=== PATIENT | male | born 2000 | race Caucasian/White ===

== ENCOUNTER 2025-02-13 07:31 | Emergency (ER) | payer OTHER, SELFPAY ==
[2025-02-13 07:53] VITALS: BP 133/79; PULSE 73; TEMP 36.7; O2SAT 96; BMI 25.8
[2025-02-13] MEDS: LIDOCAINE HCL 1% 100 MG/10 ML MDV INJ (08:00)
--- OUTSIDE RECORDS SUMMARY | 2025-02-13 08:01 | XMS_ITS | Clinical Summary ---
Author Organization [facility] Address [facility] [place] [address] Care Team Providers Care Commercial Real Estate Paralegal Name Role Phone Aaron Carballo MD Primary Care Provider [phone] Allergies No known active allergies Medications MedicationSigDispense QuantityRefillsLast FilledStart DateEnd DateStatus ibuprofen (MOTRIN) 400 mg tablet Take 400 mg by mouth every 6 hours as needed for Pain or Fever.Active acetaminophen (TYLENOL) 500 mg tablet Take 500 mg by mouth.Active Active Problems ProblemNoted DateDiagnosed DateClosed nondisplaced fracture of proximal phalanx of left ring whcjmm9109/12/2016 Family History Medical HistoryRelationNameCommentsDiabetesPaternal GrandmotherRelationName StatusCommentsPaternal Grandmother Social History Tobacco UseTypesPacks/DayYears UsedDateSmoking Tobacco: NeverSex and Gender InformationValueDate RecordedSex Assigned at BirthNot on fileLegal SexMale 05/04/2012 14:10 ESTGender IdentityNot on fileSexual OrientationNot on file Plan of Treatment Health MaintenanceDue DateLast DoneCommentsANNUAL KYZXBQOW20/13/2003MMR VACCINES (1 of 1 - Standard series)10/05/2003DTAP/TDAP/TD (1 - Tdap)2009VARICELLA VACCINES (1 of 2 - 13+ 2-dose series)10/05/2015HPV VACCINES (1 - Male 3-dose series)2017MENINGOCOCCAL B VACCINE (1 of 2 - Standard)2018HEPATITIS B VACCINES (1 of 3 - 19+ 3-dose series)2COVID-19 VACCINES ( - 2024-25 season)2024Zoster Vaccines (1 of 2)2052HEPATITIS A VACCINESAged Out No longer eligible based on patient's age to complete this topicHIB VACCINESAged OutNo longer eligible based on patient's age to complete this topicMENINGOCOCCAL VACCINEAged OutNo longer eligible based on patient's age to complete this topic PNEUMOCOCCAL VACCINEAged OutNo longer eligible based on patient's age to complete this topicPOLIO VACCINESAged OutNo longer eligible based on patient's age to complete this topicRSV VACCINES (UNDER 20 MO)Aged OutNo longer eligible based on patient's age to complete this topic Insurance Care Teams Team MemberRelationshipSpecialtyStart DateEnd Date Aaron Carballo MD [address] [place] [address] PCP - OftvbzpEjnwnzgknp06/12/17
--- OUTSIDE RECORDS SUMMARY | 2025-02-13 08:01 | XMS_ITS | Data Portability ---
Author Organization WILLIAM Reynaldo [facility], [facility] Address [address] [place] [address] Assessment No assessment recorded. Plan of Treatment Reminders Order DateSubmit DateProviderLast Modified ByJoie DetailsJames Modified TimeDetailsAppointmentsNone recorded.LabNone recorded.ReferralNone recorded. ProceduresNone recorded.SurgeriesNone recorded.ImagingNone recorded.Medication OrdersCapmist DM 60 mg-15 mg-400 mg ecsfbh94[facility] [address], [address] [place] [address], [id number], 04/25/2024 10:41:27amoxicillin 875 mg-potassium clavulanate 125 mg tablet [facility] [address], [address] [place] [address], [id number], 04/25/2024 10:41:26amoxicillin 500 mg xzbsagt68ngarland8[facility] [address], [address] [place] [address], [address], 01 10:25:52mupirocin 2 % topical dqnpdfww00[facility] [address], [address] [place] [address], [address], 01/26/2021 13:48:33cephalexin 500 mg bmvres33[facility], [address] [facility], [place], [address], 01/26/2021 13:48:28amoxicillin 500 mg xfcjlg08aingle6[facility], [address] [facility], [place], [address], 07 17:10:05 Patient TargetsNo targets recorded. Patient Instructions Encounter Date Encounter Id Patient Instructions Last Modified By Organization Details Last Modified Time 04/04/2019 [id number] tylenol prn, gargle warm salt water, recheck pmd prn or ed if symptoms worsen fhaussman Not available 04/04/2019 12:17:17 11/07/2020 [id number] Take medications as prescribed. Soak the foot in warm water with Epsom salt 3-4 times daily. Keep the foot dry during the rest of the day. Wear comfortable shoes with adequate room for the toes. Consider wearing sandals until the condition clears up. You may take ibuprofen or acetaminophen for pain relief. If there is no improvement in 2 to 3 days or if the condition worsens patient may return to clinic or call your doctor.ozvjpp243Dbo cyvdxtjjh03/17/2021 10:49:17DDX and treatment plan was discussed w/ Pt. Most consistent w/ Ingrown nail. Pt was educated on conservative measures including Epsom salt BID and was given option to choose b/w that and pharmacologic Tx. Ample time was provided to Pt to discuss HPI, review PMHx, Tx options. Pt verbalized understanding of the A/P.abrbwd583Irl ybnydpfik41/17/2021 10:41:49100022506585Oxzkn and complete entire antibiotic Tylenol or ibuprofen as needed for pain or fever Push fluids and stay well hydrated OTC treatment for URI symptoms as discussed Consider humidifier in room Followup with PCP in 2-4 days if symptoms fail to improve or worsen; sooner if needed Go to ER for fever over 102, shortness of breath/ difficultly breathing, severe abdominal pain, worsening cqloeuoqkrrksx208Nma rukdrcdai49/05/2021 13:52:31DDX and treatment plan was discussed w/ Pt. Most consistent w/ Otitis Media due to L EAC erythematous and TM Hyperemic and Bulging. Pt was educated on conservative measures and was given option to choose b/w that and pharmacologic Tx. Ample time was provided to Pt to discuss HPI, review PMHx, Tx options. Pt verbalized understanding of the A/P.ggveyg165Ceo uomhldjli43/05/2021 13:53:[id number] Sinusitis: Care Instructions qxknglqx816Ivt qsppnlupc27/02/2025 10:41:19Sinus Infection: -Humidified air can improve mucus clearance -Increase fluid intake -Blow rather than ???sniff?? nose -If no improvement in 3-7 days FU with PCP -Saline nasal wash - Acetaminophen (Tylenol) or ibuprofen (Advil, Motrin) for fever, pain ytwwkngd664Vrr gkiapfyed07/02/2025 10:41:30Call your doctor now or seek immediate medical care if: -You have new or worse swelling, redness, or pain in your face or around one or both of your eyes. -You have double vision or a change in your vision. -You have a high fever. -You have a severe headache and a stiff neck. -You have mental changes, such as feeling confused or much less alert. -You are not getting better as expected.hedevcfj037Viv available 04/25/2024 10:41:54 Reason for Referral None Reported. Problems No Known Problems Medical Equipment None Reported. Allergies No known drug allergies Medications Name Sig Start Date Stop Date Status Note LastModified by Organization Details LastModified Time amoxicillin 500 mg capsule Take 1 capsul e every 12 hours by oral route for 7 days. 01/26/2021 04/25/2024 completed Not AvailableNot AvailableNot AvailableZithromax Z-Moe 250 mg tablet1 dose moe completedNot AvailableNot AvailableNot AvailableTamiflu 75 mg capsuleTake 1 capsule twice a day by oral route.completed Not AvailableNot AvailableNot Availableamoxicillin 500 mg tabletTake 1 tablet every 8 hours by oral route for 10 days.completedNot AvailableNot AvailableNot Availablecephalexin 500 mg tabletTake 1 tablet every 8 hours by oral route for 10 days./1completedNot AvailableNot AvailableNot Availablemupirocin 2 % topical ointmentAPPLY A SMALL AMOUNT TO THE AFFECTED AREA BY TOPICAL ROUTE 3 TIMES PER DAY/1completedNot AvailableNot AvailableNot Availableamoxicillin 875 mg-potassium clavulanate 125 mg tabletTake 1 tablet every 12 hours by oral route as directed for 7 days. 5activeNot AvailableNot AvailableNot QagkboavfEdsdgyrx24/18/2018 completedNot AvailableNot AvailableNot AvailableCapmist DM 60 mg-15 mg-400 mg tabletTake 1 tablet every 6 hours by oral route as needed for 7 days.04/25/2024 activeNot AvailableNot AvailableNot Available Vitals Date Recorded Body weight Body mass index (BMI) Body height Pain severity - 0-10 verbal numeric rating [Score] - Reported Body temperature Oxygen saturation Oxygen saturation in Arterial blood by Pulse oximetry Heart rate Systolic And Diastolic Provider Name and Address Organization Details Last Updated DateTime 5 63102.1 g 25.2 kg/m2 177.8 cm 2 97.9 [degF] 97 % 97 % 78 /min 118/68 mm[Hg] Marylou Rosa [facility] 5 10:28:27 Date Recorded Body height Body mass index (BMI) Body mass index (BMI) [Percentile] Per age and sex Body weight Oxygen saturation Oxygen saturation in Arterial blood by Pulse oximetry Heart rate Body temperature Systolic And Diastolic Provider Name and Address Organization Details Last Updated DateTime 1 177.8 cm 21 kg/m2 37 % 68021.9 2 g 96 % 96 % 60 /min 97.1 [degF] 122/80 mm[Hg] Kelley Hernandez [facility] 1 10:32:24 Date Recorded Body height Heart rate Respiratory rate Body temperature Body mass index (BMI) Body mass index (BMI) [Percentile] Per age and sex Body weight Oxygen saturation Oxygen saturation in Arterial blood by Pulse oximetry Systolic And Diastolic Provider Name and Address Organization Details Last Updated DateTime 0 177.8 cm 61 /min 16 /min 98.6 [degF] 20.8 kg/m2 43 % 29807.8 9 g 98 % 98 % 120/70 mm[Hg] Diamond Dukes [facility] 0 17:09:10 Date Recorded Body height Body mass index (BMI) Body mass index (BMI) [Percentile] Per age and sex Body weight Body temperature Heart rate Oxygen saturation Oxygen saturation in Arterial blood by Pulse oximetry Systolic And Diastolic Provider Name and Address Organization Details Last Updated DateTime 1 177.8 cm 21.5 kg/m2 42 % 35464.8 6 g 98.6 [degF] 66 /min 98 % 98 % 125/80 mm[Hg] Marylou Yung [facility] 1 13:41:39 Date Recorded Body weight Heart rate Oxygen saturation Oxygen saturation in Arterial blood by Pulse oximetry Body temperature Respiratory rate Systolic And Diastolic Provider Name and Address Organization Details Last Updated DateTime 9 74786.0 7 g 61 /min 98 % 98 % 97.6 [degF] 18 /min 120/80 mm[Hg] Ailyn Muniz [facility] 9 12:05:48 Social History Question Answer Notes LastModified by Organization D etails LastModified Time Tobacco Smoking Status Never Smoker [facility]/03/2016 12:02:45Do You Have Any Side Effects From Current Meds?Exrnchtdbv9Evpmlwrpekc not ekrkootjf55/02/2025re You Concerned About Your Use Of Pain Meds?Gpgpyeputj7Ylypnrpafxz not available 04/25/2024ny Family History Of Alcohol Abuse?Uylieuwgsm9Vhzvaqchksr not duzxxogwp10/02/2025ny Family History Of Illicit Drug Abuse?Nongarland8 Information not jnbfrbyvd62/02/2025ny Family History Of Prescription Drug Abuse?Dwdfbvuwvf6Eznhckwmzhp not arytkomtc30/02/2025What Was The Date Of Your Most Recent Tobacco Screening?04/25/20241386eeyjxsuk5Oqtzegbnisr not available 04/25/2024Have You Ever Been Counseled For Unhealthy Alcohol Use?Nongarland8 Information not utbtevdhx48/02/2025How Much Tobacco Do You Smoke?Norkitchen1 Information not ixrgivzza29/10/2017 Sex: Unknown Functional Status Question Answer Note LastModified by Organization D etails LastModified Time How many times per week do you consume alcohol? 1-2 times per week egecajab9Hmbsnjgrrrx not bahudvmom62/02/2025Do you use any illicit or recreational drugs?Zlymlrvshk4Jrlwslxdbfx not ltpkjgyun81/02/2025Do you or have you ever used any other forms of tobacco or nicotine?Xmjdiyizsq4Atyptjxtmnc not nlngiegha24/02/2025What is your level of alcohol consumption?Occasionalngarland8 Information not vidtatoet83/02/2025 Mental Status None recorded. Family History Relationship Description Onset Age of this Age Resolved Age Notes LastModified by Organization Details LastModified Time Father No current problems or disabilit y yuelvykk2Jcf mbquupzls34/10/2017 12:02:40MotherNo current problems or disability zwvuslhm2Bne andwcgeou29/10/2017 12:02:40 Medical History Condition Response Coronary Artery Disease N Anxiety/Depression N Gout N Hyperthyroidism N Blood Transfusion N Blood disorders N Emphysema N Head Trauma/Injury N Hernia N ADD N Depression N Lung Disease N Pacemaker N Gastrointestinal Disease N Anxiety Disorder N Meniere's disease N Muscle, Joint, or Bone Problems N Arthritis N Chronic ear infections N Blood Clot N Acid Reflux (GERD) N Cancer N Stroke N Neck Injury N COPD/Emphysema N ADHD N Ulcers/Gastritis N Back Injury N High Cholesterol N Neurologic Disorder N Liver Disease N Organ Transplant N Fibromyalgia N Headaches N Kidney Disease N N Migraines N Thyroid Problems N Carpel Tunnel N Diabetic Eye Disease N Anemia N Multiple Sclerosis N Meningitis N Heart Attack (LA) N Diabetes N Difficulty swallowing N Bleeding Disorder N Eye Trauma N Tuberculosis N AIDS/HIV N Diverticulitis N Nasal polyps N Asthma N Allergies N Hepatitis N Neuropathy N Heart Disease N Hypertension N Osteoporosis N Past Encounters Encounter ID Performer Location Encounter Start Date Encounter Closed Date Diagnosis/Indication Diagnosis SNOMED-CT Code Diagnosis ICD10 Code Diagnosis IMO Codes Diagnosis Note [id number] KOKI MARSH MD [facility] [facility] [place] [address] [place] [address] 11/18/2015 13:32:41 11/18/2015 14:03:11 [id number] DAUFELUC [place] [address] [place] [address] 06/03/2016 11:36:55006/03/2016 12:32:06Acute nalxludot46770204X74.90 Qcwsoscbm2159755W09.1 [id number] MIRANDA, [address] [address] 11/14/2016 12:29:25011/14/2016 12:46:[id number] Regan [address] [address] 11/08/2017 14:24:24011/08/2017 15:24:25History and physical examination, sports wacpbxnvuzatf541718203B09.5 PTMUVU243640Mjoepmch Jess [address] [address] 05/29/2018 15:04:58005/29/2018 16:30:41Acute upper respiratory brwerfuqs64804809 J06.9 [id number] Amador [address] [address] 04/04/2019 11:59:23106/05/2018 12:49:42Acute vsordugkdav49179823H69.[id number] [address] 11/21/2019 17:03:19011/21/2019 18:54:[id number] VILLASEÑOR [address] [address] 11/07/2020 10:25:28011/07/2020 10:52:32Ingrowing nail of toe of left foot 51153256637471352A86.0 [id number] VILLASEÑOR [address] [address] 01/26/2021 13:34:171 13:53:26Acute left otitis tgkna208596570C36.92 [id number] BOWDEN [address] [address] 04/25/2024 10:19:13004/25/2024 10:54:48Acute kfwechtgc09598332M68.90 [id number] Acute Sinusitis- MDM: Based on history of persistent sinus symptoms, likely bacterial sinusitis. Noevidence of Meningitis, OM, Strep or Pneumonia. Will start on oral antibiotics today. Strongly encouraged to continue symptomatic and supportive care measures. Advised to follow-up with the primary care provider if symptoms persist, or return with any new or worsening symptoms. Patient agreeable with plan and verbalized understanding. Discussed/Provided medications for symptom management. Health Concerns Section Related Observation LastModified by Organization Detai ls LastModified Time None Recorded Concern Status LastModified by Organization Details LastModified Time None Recorded Advance Directives Directive None Recorded Payers Insurance Date Sequence Insurance Name Policy Number Policy Rainey Covered Member ID Rainey Member ID Guarantor Name 04/25/[address] [facility] [id number] Ambrosio Ruiz [id number] [facility] Atxveqhbj44/17/53609NTQQ-JC (PPO)[id number] Josee [id number] Trvfxrvpt76/10/20171*SELF PAY*Anthony Ruiz [id number] P [id number] Ylntqfaem20/17/20211 *SELF PAY*Anthony Rileyashlee Notes Date Note Type Note Provider Name and Address Orga nization Details Recorded Time 04/04/2019 text/html Sore ThroatRepor ac by PatientHPIFor quality, patient reportshoarseness,laryngitis,symptoms worse in the evening, andburningbut reportsno difficulty swallowing. For severity, patient reportsmoderate. For location, patient reportsbilateral. For onset/timing, patient reportsdate of onset ____andgradual(2 days ago. sister with strep last week). For context, patient reportsno recent travel. For associated symptoms, patient reportsno fever,no cough,no nausea,no vomiting,no choking, andno rash. YSABEL AMADOR [facility]04/04/2019 12:17:3907text/html Patient is a 20-year-old male with no relevant past medical history who now presents to the clinic accompanied by his mother with complaint of ingrown nail in the left foot big toe. Patient states hehas a scrimmage today in his left toe is painful and swollen. He currently rates his pain at 7 out of 10 when touching. At rest his pain is usually around 2-3 out of 10. Describes the pain as dull and achy. States is constant. The pain does not radiate anywhere into the dorsal aspect of foot or theplantar. Patient at this time does not endorse any associated symptoms of fever, chills, numbness, tingling, active drainage, loss of motor and sensory function. So far they have been self managing his symptoms with OTC NSAIDs but they seem to help temporarily. Otherwise patient is up-to-date on his immunizations.ALL M[place], [facility] [address] [place], [address], [facility]11/07/2020 11:06:501text/html Patient is a 20-year-old male with no relevant past medical history who now presents to the clinic with a complaint of sinus headache, coughing which is mostly dry with occasional yellow-green phlegm, congestion since 1 week. Patient also endorses mild earache bilaterally. Patient states symptoms have been progressively getting worse. He at this time does not recall being around any known sick contacts however there are multiple kids at his school that are out due to some viral illness. He is up-to-date on his immunizations with the exception of COVID-19 vaccine. Patient currently rates his pain 4-5 out of 10. Describes the pain as dull and achy. States is constant worse with turning head due to congestion. He otherwise presents in hemodynamically stable condition, satting normally on room air, speaking full sentences, no acute distress or use of accessory muscles. Patient at this time does not endorse any associated symptoms of fever, chills, sore throat, productive cough, headache, visual changes, neck stiffness/rigidity, rash, shortness of breath, chest pain, nausea, vomiting, diarrhea. Denies any loss of smell or taste. So far he has been self managing his symptoms with Claritin which does not seem to be helping at all. Patient states he tested himself with COVID-19 home test kit on 2 different occasion and was negative both times. Thus he would like to not be tested for Co vid during the visit. Otherwise patient is a non-smoker, no drugs or alcohol consumption. No recentillnesses or hospitalizations.Based on this presentation and physical examination of erythematous nasal mucosa and oropharynx with a left EAC being erythematous/edematous with TM hyperemic and bulging most consistent with otitis media in conjunction with allergies. Thus, I recommended patient to be started on amoxicillin antibiotics for the ear infection. He was educated on signs and symptoms that would require immediate medical care. Patient was educated to avoid water submersion, keeping the ears clean and dry, avoid the u se of Q-tips in earphones. Patient agreed with the treatment plan and had no other concerns or questions for me.ALL MORROW [facility] [address] [place], [address], [facility]01/26/2021 13:58:24004/25/2024text/htmlROS as noted in the HPI CC: presents cough, yellow nasal drainage, congestion, sore throat, productive cough. Denies BA, BA, chills, N/V/D Onset: 1 week Treatments tried: water, vitamin c, and zinc Tobacco use: denies Sick encounter: deniesLoss of taste and smell: denies Fever: denies Severity: moderate to severe Course: worsening Allergies, health history, and medications reviewed. Alexandra canales, [facility]04/25/2024 10:47:29
--- OUTSIDE RECORDS SUMMARY | 2025-02-13 08:01 | XMS_ITS | Clinical Summary ---
Author Organization [facility] [place] [address] Care Team Providers Care Bagman/Woman Name Role Phone Janay Servin MD Primary Care Provider [phone] Alexis Santo MD Unavailable [phone] Allergies No known active allergies Medications MedicationSigDispense QuantityRefillsLast FilledStart DateEnd DateStatus MULTIVITAMIN ORAL Take by mouth dailyActive Active Problems ProblemNoted DateDiagnosed DateLeft shoulder pain03/25/2021 Overview (03/25/2021): Added automatically from request for surgery [id number] Labral tear of shoulder, left, mjhyslj0703/25/2021 Overview (03/25/2021): Added automatically from request for surgery [id number] Immunizations ImmunizationAdministration DatesNext DueMeningococcal Polysaccharide (groups A, C, Y and W-135) Diphtheria Toxoid Conjugate vaccine (MCV4P)01/06/2021,10/21/2013 TDaP10/21/2013 Family History Medical HistoryRelationCommentsNo Known ProblemsFatherNo Known ProblemsMother RelationStatusCommentsFatherAliveMotherAlive Social History Tobacco UseTypesPacks/DayYears UsedDateSmoking Tobacco: NeverSmokeless Tobacco: NeverAlcohol UseStandard Drinks/WeekCommentsNo0 (1 standard drink = 0.6 oz pure alcohol)PHQ-2AnswerDate RecordedPatient Health Questionnaire-2 Wlbhf263 Sex and Gender InformationValueDate RecordedSex Assigned at BirthNot on file Legal HvrXerv1606/11/2017 1:53 PM ESTGender IdentityNot on fileSexual Orientation Not on file Last Filed Vital Signs Vital SignReadingTime TakenCommentsBlood Pomwqaca158/7004 2:32 PM EDT Oluea7372 2:32 PM RIBUumypbpbwbi91.3 ??C (97.4 ??F)04/15/2021 9:45 AM ESTRespiratory Pbqq282106/16/2020 9:45 AM ESTOxygen Yorgptcnys32%04/15/2021 9:45 AM ESTInhaled Oxygen Concentration--Gmsfis40 kg (150 lb)07/27/2021 2:32 PM EDT Vdlzzr687.3 cm (5' 9 )07/27/2021 2:32 PM EDTBody Mass Index22.15007/27/2021 2:32 PM EDT Plan of Treatment Health MaintenanceDue DateLast DoneCommentsHIV Ytepfdekg93/13/2018HPV Vaccines (1 - Male 3-dose series)2017Meningococcal B Vaccines (1 of 2 - Standard) 2018Hepatitis C Cvelsyxiz36/13/2021Hepatitis B Vaccines (1 of 3 - 19+ 3- dose series)2DTaP/Tdap/Td Vaccines (2 - Td or Tdap) Influenza Fpnafafk05/01/2025COVID-19 Vaccines ( - season)2024 Meningococcal KyxjrborDmgangeqv68/15/2021, 10/21/2013HIB VaccinesAged OutNo longer eligible based on patient's age to complete this topicHISTORICAL VIEW: MMR VaccinesDiscontinuedHISTORICAL VIEW: Varicella VaccinesDiscontinuedHepatitis A VaccinesAged OutNo longer eligible based on patient's age to complete this topicIPV VaccinesAged OutNo longer eligible based on patient's age to complete this topicPneumococcal Vaccines: Pediatrics (0 to 5 Years) and At-Risk Patients (6 to 49 Years)Aged OutNo longer eligible based on patient's age to complete this topicRotavirus VaccinesAged OutNo longer eligible based on patient's age to complete this topic Medical Devices ImplantedTypeAreaManufacturerDevice IdentifierShelf Expiration DateModel / Serial / LotAncr Sut Biocmpst 2.9x15.5mm Latxfree Pushlock [id number] - [id number] Implanted:Qty: 1 on 04/15/2021 by [facility]ji [facility]Left: ShoulderARTHREX INC5AR-1923BC / / [id number] Sut Biocmpst 2.9x15.5mm Latxfree Pushlock [id number] - [id number] Implanted:Qty: 1 on 04/15/2021 by Reji [facility]Left: ShoulderARTHREX INC5AR-1923BC / / [id number] Sut Biocmpst 2.9x15.5mm Latxfree Pushlock [id number] - [id number] Implanted:Qty: 1 on 04/15/2021 by Reji Logan [facility]Left: ShoulderARTHREX INC5AR-1923BC / / [id number] Sut Biocmpst 2.9x15.5mm Latxfree Pushlock [id number] - [id number] Implanted:Qty: 1 on 04/15/2021 by Reji Logan [facility]: ShoulderARTHREX INC5AR-1923BC / / [id number] Insurance Care Teams Team MemberRelationshipSpecialtyStart [place] [address] [place] [address] [address] [place] [address] PCP - CcmdslxJilezpijyp96/8/18 Alexis Santo MD [address] [facility] [address] [place] [address] UrologistUrology07/26/21
--- NOTE | 2025-02-13 08:31 | ED_ITS ---
HPI HPI - General Adult General Chief complaint: Wound/Laceration Stated complaint: laceration - fingers Time Seen by Provider: 02/13/25 07:40 Source: patient Mode of arrival: walk-in Limitations: no limitations History of Present Illness HPI narrative: 24-year-old male presents for laceration to his right index finger. This was sustained just before coming into the emergency department when he was pulling on a stem of a cattail plant. He also sustained abrasion to the ring finger as well. His last tetanus shot was at least 10 years ago. No other injury was sustained. Related Data Previous Rx's ?Medication ?Instructions ?Recorded cephalexin 500 mg capsule 500 mg PO TID 5 days #15 cap s 02/13/25 Allergies Allergy/AdvReac Type Severity Reaction Status Date / Time No Known Drug Allergies Allergy Verified 02/13/25 07:52 Review of Systems ROS Narrative A ten point review of systems is negative except as noted above. PFSH PFSH Social History Little interest or pleasure in doing things: not at all Feeling down, depressed, or hopeless: not at all Exam Narrative Exam Narrative: Nurses note and vital signs reviewed General:The patient appears well and in no apparent distress.Patient is resting comfortably on cart. Skin:Warm, dry, no pallor noted.There is no rash noted. Head:Normocephalic, atraumatic Eye: Normal conjunctiva, no drainage Ears, Nose, Mouth, and Throat: oral mucosa is moist. Nares patent. Cardiovascular:Regular Rate and Rhythm Respiratory:Patient is in no distress, no accessory muscle use Back:non-tender GI: Soft and nontender Musculoskeletal: His right hand is examined. There is a 1-1/2 cm transverse laceration on the finger pad of his right middle finger. There is some bleeding which is easily controlled with pressure. There is an abrasion on the finger pad of his right fourth finger as well. No other wounds are present. DIP and PIP have full range of motion. Neurological: Awake and alert Psychiatric:Cooperative Constitutional Vital Signs, click to edit/add: Last Vital Signs Temp 98.0 F 02/13/25 07:53 Pulse 73 02/13/25 07:53 Resp 16 02/13/25 07:53 BP 133/79 02/13/25 07:53 Pulse Ox 96 02/13/25 07:53 O2 Del Method Room Air 02/13/25 07:53 Course Vital Signs Vital signs: Vital Signs Temperature 98.0 F 02/13/25 07:53 Pulse Rate 73 02/13/25 07:53 Respiratory Rate 16 02/13/25 07:53 Blood Pressure 133/79 02/13/25 07:53 Pulse Oximetry 96 02/13/25 07:53 Oxygen Delivery Method Room Air 02/13/25 07:53 Temperature 98.0 F 02/13/25 07:53 Pulse Rate 73 02/13/25 07:53 Respiratory Rate 16 02/13/25 07:53 Blood Pressure 133/79 02/13/25 07:53 Pulse Oximetry 96 02/13/25 07:53 Oxygen Delivery Method Room Air 02/13/25 07:53 Medical Decision Making MDM Narrative Medical decision making narrative: The following procedure was performed by me. Finger block applied with 1% lidocaine without epinephrine resulting in complete skin anesthesia. The area was prepped with Betadine x 3 and draped sterilely. It was explored for foreign bodies and none were found and then closed with three 5-0 Ethilon sutures resulting in good skin reapproximation and no complications. Sutures to be removed in a week. Tetanus status updated and he was placed on a 5-day course of prophylactic Keflex. Differential Diagnosis Differential Diagnosis: Laceration, need for tetanus immunization Discharge Plan Discharge Chief Complaint: Wound/Laceration Clinical Impression: Finger laceration Patient Disposition: Home, Self-Care Time of Disposition Decision: 08:30 Mode of Transportation: Private Vehicle Prescriptions / Home Meds: New cephalexin 500 mg capsule 500 mg PO TID 5 Days Qty: 15 0RF Print Language: Grenadian Instructions: Finger Laceration (ED) Additional Instructions: Leave tube gauze on for 48 hours. Remove and apply bandage daily. Sutures to be removed in 7 days. Referrals: Physician,Non-Staff, MD [Primary Care Provider] - 1 week
[2025-02-13] MEDS: DIPHTH,PERTUSS(ACELL),TET VAC 0.5 ML SYRINGE IM (08:36)
== END 2025-02-13 08:41 | disposition home or self-care (01) ==
PROVIDERS: Emergency Provider Emergency Medicine
DX: S61.210A Laceration without foreign body of right index finger without damage to nail, initial encounter (principal); S60.414A Abrasion of right ring finger, initial encounter; Y93.H2 Activity, gardening and landscaping
CPT/HCPCS: 90471; 90715; 99284